=== PATIENT | male | born 1965 | race Caucasian/White ===

== ENCOUNTER → 2024-07-25 13:39 | Outpatient (REF) | payer OTHER, SELFPAY ==
[2024-07-25 14:58] LABS: % Basophils 0.6 % (0-2); % Eosinophils 3.5 % (0-6); % Immature Granulocytes 0.2 % (0-0.5); % Lymphocytes 23.8 % (20.5-51.1); % Monocytes 10.8 % (1.7-9.3); % Neutrophils 61.1 % (42.2-75.2); Absolute Basophils 0.1 10^3/uL (0-0.2); Absolute Eosinophils 0.3 10^3/uL (0-0.7); Absolute Lymphocytes 2.3 10^3/uL (1.2-3.4); Absolute Neutrophils 5.9 10^3/uL (1.4-6.5); Hematocrit 50.7 % (39.0-52.0); Hemoglobin 17.9 g/dL (13.0-18.0); Mean Corp Hgb Conc. 35.3 g/dL (33.0-37.0); Mean Corpuscular Hgb 34.9 pg (27.0-31.0); Mean Corpuscular Volume 98.8 fL (80.0-94.0); Mean Platelet Volume 11.6 fL (7.4-10.4); Nucleated Red Blood Cells % 0 % (-); Platelet Count 172 10^3/uL (130-400); Red Blood Cell Count 5.13 10^6/uL (4.70-6.10); Red Cell Dist. Width 11.8 % (11.5-14.5); White Blood Cell Count 9.6 10^3/uL (4.8-10.8)
[2024-07-25 15:15] LABS: Blood Urea Nitrogen 23 mg/dl (9-20); Calcium 9.1 mg/dl (8.4-10.2); Carbon Dioxide 30 mmol/L (22-30); Chloride 96 mmol/L (98-107); Glucose 89 mg/dl (70-99); Potassium 4.8 mmol/L (3.5-5.1); Sodium 135 mmol/L (135-145); eGFR > 60.00
== END ==
LOC: RCS 13:39
PROVIDERS: ATTENDING PHYSICIAN Specialist; FAMILY PHYSICIAN Family Medicine
DX: Z01.818 Encounter for other preprocedural examination (principal)
CPT/HCPCS: 36415; 80048; 85025; 93005

== ENCOUNTER 2024-08-18 14:00 | Emergency (ER) | payer OTHER, SELFPAY ==
[2024-08-18 14:24] VITALS: BP 135/89
--- NOTE | 2024-08-18 14:59 | ED.GENMED ---
History of Present Illness
General
Chief Complaint: DVT/Possible Blood Clot
Time Seen by Provider: 08/18/24 14:59
History of Present Illness
History of Present Illness:
TIME OF INITIAL ENCOUNTER: 3 PM
HPI: The patient had left total knee replacement 08/09/[address] Hemphill. He came in today because he was concerned of ongoing/worsening areas of ecchymosis and swelling. This is associated with some degree of pain. He was placed on a
full-strength aspirin postoperatively. He has never had a blood clot in the past. He has no shortness of breath. He primarily came in 'for peace of mind'.
EXAM:
GENERAL: Well appearing in no distress
HEENT: Moist oral mucosa
CARDIOVASCULAR: No murmurs, normal heart rate, regular rhythm, No chest wall tenderness
PULMONARY: No respiratory distress, breath sounds are clear and equal
ABDOMEN: Soft with no peritoneal signs, no tenderness
NEUROLOGIC: Excellent strength all extremities, no coordination deficits
PSYCHIATRIC: Appropriate mental status, normal insight and judgement
EXTREMITIES: There is extensive ecchymosis throughout the majority of the left lower extremity, pebbles are noted to the anterior knee, decreased active range of motion due to pain, there is a patch of erythema over the piper, there is no purulent
drainage from the wound, no clear evidence of cellulitis, although he reports some pain with palpation at the calf, the compartments are soft in both the thigh and the leg, strong left DP pulse, excellent perfusion
SKIN: As above
NUMBER AND COMPLEXITY OF PROBLEMS ADDRESSED AT THE ENCOUNTER
� Chronic conditions affecting care: No significant past medical history but did have left TKR August 2024 this is an acute problem
� Acute Exacerbation and/or Progression of Chronic Illness:
� Differential Diagnosis includes: Postoperative healing, ecchymosis complicated by aspirin use, DVT, postoperative infection unlikely, no evidence for compartment syndrome on exam
AMOUNT AND/OR COMPLEXITY OF DATA TO BE REVIEWED AND ANALYZED
� I performed an independent evaluation of and my interpretation is:
EKG:
CT:
X-rays:
Laboratory Studies:
Other:
� Review of other/old records: Operative report not available in [facility]
� Clinical information was obtained by an independent historian: I spoke to his significant other at bedside
� Prescriptions/Medications Considered but not given:
� Further testing considered but not performed:
RISK OF COMPLICATIONS AND/OR MORBIDITY OR MORTALITY OF PATIENT MANAGEMENT
� Social determinants of health affecting care: Lives at home
� Discussion with other providers:
� Escalation of care including admission/observation vs risk of discharge considered: Ultrasound obtained and was negative. Extensive ecchymosis noted but compartments are soft with no evidence of compartment syndrome. He will
follow-up with Dr. Hemphill.
ANY OTHER UPDATES:
Past History
Past History
ED Past Medical History: None
ED Past Surgical History: Orthopedic (carpal tunnel, bone spurs) and Other (Hernia repair)
Social History
Tobacco: Non-smoker
Alcohol: None
Drug: None
Personal:
Living: with family
Phy Exam
Physical Exam
Physical Exam:
See HPI
Course
Orders/Labs/Results
Orders:
Orders
08/18/24 14:04
Periph Venous Lwr Ext Left US [US Periph Venous LOWER Ext LT] Urgent
Comment: post op knee
Reason For Exam: pain swelling
Vital Signs
Initial and Last Documented VS:
Initial Vital Signs
Temp Pulse Resp BP Pulse Ox
36.4 C 68 18 135/89 99
08/18/24 14:08/18/24 14:08/18/24 14:08/18/24 14:08/18/24 14:24
Last Documented Vital Signs
Temp Pulse Resp BP Pulse Ox
36.4 C 68 18 135/89 99
08/18/24 14:08/18/24 14:24 08/18/24 14:24 08/18/24 14:24 08/18/24 14:24
*Critical Care Note
Total Time (30-74mins, 75-104mins- exclusive of procedures): Not Applicable
ED Attending Note
-
Portions of this chart may have been created with voice recognition software.� Occasional wrong word or��sound alike� substitutions may have occurred due to the inherent limitations of voice recognition software.
Discharge Plan
Departure
Patient Disposition: Home (Routine Discharge)
Date of Disposition: 08/18/24
Time of Disposition: 15:39
Patient with high blood pressure during this ER visit?: Yes
Discharge Problem:
Extensive postoperative bruising
Instructions: BLOOD PRESSURE
Prescriptions:
No Action
acetaminophen [acetaminophen] 325 mg tablet
650 mg PO Q4HPRN PRN (Reason: mild pain) Qty: 1 0RF
tramadol 50 mg tablet
50 mg PO Q6HPRN PRN (Reason: severe pain/breakthrough pain) Qty: 10 0RF
ibuprofen 200 mg tablet
400 - 600 mg PO Q6HPRN PRN (Reason: moderate pain) Qty: 1 0RF
amoxicillin-pot clavulanate [amoxicillin-pot clavulanate] 875-125 mg tablet
1 tab PO Q12 4 Days Qty: 8 0RF
Referrals:
Alessandro Tao MD [Family Provider] -
Activity Restrictions/Additional Instructions:
The ultrasound shows no sign of blood clot. Follow-up with Dr. Hemphill. Return here if worse or other concerns. Of note, your blood pressure is high at 135/89 you should follow-up with her primary care doctor as well.
Interventions
Interventions:
*Risk Screen - Suicide Last Done: 08/18/24 14:24
*General Assessment Last Done: 08/18/24 14:24
*ED COVID-19 Vaccine History Last Done: 08/18/24 14:24
ED- Cardiac Assessment Last Done: 08/18/24 15:04
ED- Pulmonary Assessment Last Done: 08/18/24 15:04
ED-Peripheral Vascular Assessment Last Done: 08/18/24 15:04
ED-Skin Assessment Last Done: 08/18/24 15:04
Discharge Date and Time
Print Language: FIJIAN
== END 2024-08-18 16:06 | disposition home or self-care (01) ==
LOC: EMR 14:00
PROVIDERS: EMERGENCY PHYSICIAN Emergency Medicine; FAMILY PHYSICIAN Family Medicine
DX: L76.32 Postprocedural hematoma of skin and subcutaneous tissue following other procedure (principal); R03.0 Elevated blood-pressure reading, without diagnosis of hypertension
CPT/HCPCS: 99284; 93971